=== PATIENT | male | born 1980 | race Two or more races ===

== ENCOUNTER 2016-07-30 04:12 | Emergency (ER) | payer BC ==
[~2016-07-30] VITALS: Ht 172.7 cm; Wt 95.3 kg
--- NOTE | 2016-07-30 04:12 | NUR ---
BIBRA 881 FROM HOME C/O BACK PAIN. DENIES TRAUMA. HX BACK L5-S1 SX X 3 MONTHS AGO. LAST TOOK HYDROCODONE 7.5 MG PO 8HR AGO WITH NO RELIEF. PT AOX4 RR EVEN AND UNLABORED. NO SOB NOTED. NAD NOTED. NO NVD AT THIS TIME. PT GOWNED AND PLACED ON MONITOR WAITING FOR MD HEATH.
[2016-07-30] MEDS ORDERED: DEXAMETHASONE SOD PHOSPHATE 10 MG/ML VIAL ONE ×2 (04:46→12:24)
[2016-07-30] MEDS ORDERED: DEXAMETHASONE SOD PHOSPHATE 4 MG/ML VIAL IM ONE (05:00)
[2016-07-30] MEDS ORDERED: ONDANSETRON 4 MG TAB.RAPDIS ONE (05:06)
[2016-07-30] MEDS ORDERED: HYDROMORPHONE 1 MG/1 ML DISP.SYRIN ONE (05:10)
--- NOTE | 2016-07-30 05:14 | NUR ---
pt transported to radiology for ct lumbar spine.
--- NOTE | 2016-07-30 05:20 | NUR ---
pt back from radiology.
[2016-07-30] MEDS ORDERED: ONDANSETRON 4 MG TAB.RAPDIS SL ONE (05:30)
[2016-07-30] MEDS ORDERED: HYDROMORPHONE 1 MG/1 ML DISP.SYRIN IM ONE (05:30)
--- NOTE | 2016-07-30 06:52 | NUR ---
TEXTED DR. DUTTA FOR MRI APPROVAL.
--- NOTE | 2016-07-30 07:11 | NUR ---
REPORT GIVEN TO MASON BURGESS FOR SRINI.
[2016-07-30 07:15] LABS: BASOPHILS % (AUTO) 0.3 % (0.0-2.0); EOSINOPHILS % (AUTO) 0.1 % (0.0-6.0); HEMATOCRIT 47 % (39-51); HEMOGLOBIN 16.1 g/dL (13.5-17.5); LYMPHOCYTES # (AUTO) 0.8 /CMM (0.8-4.8); LYMPHOCYTES % (AUTO) 9.1 % (20.0-44.0); MEAN CORPUSCULAR HEMOGLOBIN 30 PG (26.0-33.0); MEAN CORPUSCULAR HGB CONC 34 g/dl (31.0-36.0); MEAN CORPUSCULAR VOLUME 87 fL (80-96); MONOCYTES # (AUTO) 0.1 /CMM (0.1-1.30); MONOCYTES % (AUTO) 1.1 % (2.0-12.0); NEUTROPHILS # (AUTO) 7.9 /CMM (1.8-8.9); NEUTROPHILS % (AUTO) 89.4 % (43.0-81.0); PLATELET COUNT (AUTO) 245 /CMM (150-450); RED BLOOD CELL COUNT(AUTO) 5.39 MIL/uL (4.5-6.0); WHITE BLOOD COUNT (AUTO) 8.8 K/uL (4.3-11.0)
--- NOTE | 2016-07-30 07:20 | NUR ---
Patient on bed, awake, vss
[2016-07-30 07:29] LABS: CALCIUM, SERUM 9.6 mg/dL (8.5-10.1); CREATININE 0.9 mg/dL (0.6-1.3); POTASSIUM 3.6 mmol/L (3.5-5.1)
--- NOTE | 2016-07-30 07:50 | NUR ---
licensed chemical spray technician called -- senior manufacturing technician will be here around [phone]. griffin miller made aware.
[2016-07-30] MEDS ORDERED: DIAZEPAM 5 MG/ML 2 ML DISP.SYRIN ONE (08:59)
[2016-07-30] MEDS ORDERED: DIAZEPAM 5 MG/ML 2 ML DISP.SYRIN IV ONE (09:00)
--- NOTE | 2016-07-30 09:28 | NUR ---
patient was taken to mri
--- NOTE | 2016-07-30 10:34 | NUR ---
PT IS BACK FROM MRI. VSS
--- NOTE | 2016-07-30 12:05 | NUR ---
CALLED [facility] [phone]
--- NOTE | 2016-07-30 12:13 | NUR ---
MD SILVA ON PHONE WITH AKIN- YUNG
--- NOTE | 2016-07-30 12:16 | NUR ---
AKIN [phone] DR. FREDY GARCIA- SURGEON FROM [place] [phone]
--- NOTE | 2016-07-30 12:19 | NUR ---
CALLED [facility] & [phone] FAX [phone]
[2016-07-30] MEDS ORDERED: DEXAMETHASONE SOD PHOSPHATE 10 MG/ML VIAL IV ONE (12:30)
[2016-07-30 14:02] VITALS: BP 120/88
--- NOTE | 2016-07-30 14:03 | NUR ---
Patient discharged to home in stable condition. Written and verbal after care instructions given. Patient verbalizes understanding of instruction.
--- NOTE | 2016-07-30 14:03 | NUR ---
back brace provided
--- NOTE | 2016-07-30 14:03 | NUR ---
IV removed. Catheter intact and site benign. Pressure and 4x4 applied to site. No bleeding noted.
== END 2016-07-30 14:03 | disposition home or self-care (01) ==
LOC: EDBD 04:21 → ER 04:21
DX: M54.5 Low back pain (principal)
CPT/HCPCS: 36415; 72131; 72158; 80048; 85025; 96372 ×2; 96374 ×2; 99285; A4606; J1100 ×2; J1170; J3360; Q0162; Z7610